=== PATIENT | female | born 1955 | race Caucasian/White ===

== ENCOUNTER → 2025-07-21 09:43 | Outpatient (BNVA) | payer MEDICARE, BC, SELFPAY | PROVIDERS: Referring Provider Family Medicine; Visit Provider Specialist | DX: G62.9 Polyneuropathy, unspecified (principal); M54.2 Cervicalgia | CPT/HCPCS: 99205 ==

== ENCOUNTER 2025-08-05 08:15 | Outpatient (CLI) | payer MEDICARE, BC, SELFPAY ==
--- NOTE | 2025-08-05 08:45 | MR_ITS ---
WS: [id number] MRI HEAD WITH CONTRAST TECHNIQUE: Sagittal T1, T2 axial, T2 axial FLAIR, axial susceptibility weighted imaging, axial diffusion weighted images, and coronal T2 images were obtained. Pre and post-T1 axial and post T1 coronal images. ADC and FSPGR images. CLINICAL INFORMATION: R20.2 - Paresthesia of skin FINDINGS: No evidence of restricted diffusion to suggest acute ischemia. Ventricular system and basilar cisterns are patent. Mild patchy supratentorial white matter changes compatible with small vessel disease in a patient of this age. Retrocerebellar arachnoid cyst measuring 2.3 x 3.9 x 3.9 cm AP by transverse by craniocaudal. Normal vascular flow voids at the skull base. No extra-axial fluid collections. Paranasal sinuses and mastoid air cells are well aerated. No hemosiderin on the susceptibly weighted images. Normal optic chiasm and pituitary infundibulum. Temporal lobes and hippocampal formations are normal in appearance. Tiny enhancing meningioma overlying the RIGHT posterior superior temporal lobe measuring 7 mm. No evidence of underlying edema or mass effect. No other abnormal foci of enhancement.. MR/MR head wo/w con [id number] IMPRESSION: 1. No evidence of restricted diffusion to suggest acute ischemia. 2. Mild small vessel changes with mild parenchymal volume loss. 3. Benign RIGHT retrocerebellar arachnoid cyst described above. 4. Incidental enhancing tiny meningioma at the RIGHT temporoparietal junction measuring 7 mm. 5. No other acute findings.
--- NOTE | 2025-08-05 09:30 | MR_ITS ---
WS: [id number] MR CERVICAL SPINE WO/W HISTORY: R20.2 - Paresthesia of skin TECHNIQUE: Sagittal T1, T2 and T2 inversion recovery; axial T2, T2 gradient and fiesta. Post gadolinium imaging with fat saturation technique. FINDINGS: Straightening of the normal cervical lordosis. Cord signal is normal. No abnormal gadolinium enhancement. No visualized lesions in the cervical cord. C2-3: Spinal canal and foramen are patent. C3-4: Uncovertebral joint hypertrophy. Moderate facet arthropathy. Mild LEFT bony foraminal narrowing. C4-5: Disc osteophyte complex with endplate ridging. Mild central canal stenosis. Uncovertebral joint hypertrophy. Moderate LEFT greater than RIGHT bony foraminal narrowing. Mild central canal stenosis. C5-6: Disc osteophyte complex with slight contact of the cervical cord. Mild central canal stenosis. Moderate bilateral bony foraminal narrowing. C6-7: Mild endplate ridging. Mild LEFT bony foraminal narrowing. Spinal canal is patent. C7-T1: Mild LEFT and no significant RIGHT foraminal narrowing. Spinal canal is patent. RIGHT retrocerebellar arachnoid cyst described on the head MRI. MR/MR cervical spine wo/w [id number] IMPRESSION: 1. Straightening of the normal cervical lordosis. Cord signal is normal. No a bnormal gadolinium enhancement. 2. Mild central canal stenosis C4-C5 and C5-C6 with slight contact of the cerv ical cord at C5-C6 with disc osteophyte complex. 3. Moderate bony foraminal narrowing LEFT C4-5 and bilateral C5-C6.
[2025-08-05] MEDS: gadobenate dimeglumine 20 mL vial 13 ML IV (10:05)
== END 2025-08-05 08:16 | disposition home or self-care (01) ==
LOC: RAD 08:17
PROVIDERS: PCP Family Medicine; Visit Provider Specialist
DX: R20.2 Paresthesia of skin (principal); G62.9 Polyneuropathy, unspecified; M40.292 Other kyphosis, cervical region; M48.02 Spinal stenosis, cervical region; M25.78 Osteophyte, vertebrae; I67.89 Other cerebrovascular disease; G93.0 Cerebral cysts
CPT/HCPCS: 70553; 72156; A9577